=== PATIENT | male | born 1970 | race Caucasian/White ===

== ENCOUNTER 2017-05-08 16:14 | Emergency (ER) | payer SELFPAY ==
[~2017-05-08] VITALS: Ht 170.2 cm; Wt 54.4 kg
[~2017-05-08 16:14] MED LIST: LORA-258 PO
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
[2017-05-08] MEDS ORDERED: HYDROCODONE/APAP 5/325MG 1 EACH TABLET ONE (16:30)
[2017-05-08] MEDS ORDERED: ONDANSETRON 4 MG TAB.RAPDIS SL ONE (16:30)
[2017-05-08] MEDS ORDERED: HYDROCODONE/APAP 5/325MG 1 EACH TABLET PO ONE (16:30)
[2017-05-08] MEDS ORDERED: ONDANSETRON 4 MG TAB.RAPDIS ONE (16:31)
--- NOTE | 2017-05-08 17:15 | NUR ---
CALLED [phone] F/U WITH US
[2017-05-08 17:53] VITALS: BP 136/75
--- NOTE | 2017-05-08 17:55 | NUR ---
Patient discharged to home in stable condition. Written and verbal after care instructions given. Patient verbalizes understanding of instruction.
== END 2017-05-08 17:55 | disposition home or self-care (01) ==
LOC: ER 16:16
DX: N50.811 Right testicular pain (principal); J45.909 Unspecified asthma, uncomplicated; F20.9 Schizophrenia, unspecified; F10.10 Alcohol abuse, uncomplicated; F17.200 Nicotine dependence, unspecified, uncomplicated
CPT/HCPCS: 99283; A4606; Q0162; Z7610

== ENCOUNTER 2017-07-25 01:26 | Emergency (ER) | payer OTHER ==
[~2017-07-25] VITALS: Ht 170.2 cm; Wt 77.1 kg
--- NOTE | 2017-07-25 01:30 | NUR ---
bib paramedics from [facility] c/o low blood pressure. received pt aaox4 but slow to respond but able to follw simple commands, no acute distress noted, resp even and unlabored. place pt on cardiac monitoring, continuous pox, o2@2l/nc. 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 pupils perrla, pt able to move all extremities well with bilateral equal operator weapon locating radar. er md at beside to eval pt with orders received. [employer] officers at bedside.
--- NOTE | 2017-07-25 01:30 | NUR ---
Note frankie in EDM - 07/25/17 at 0138 by MARQUES bib paramedics from [facility] c/o low blood pressure. received pt somnolent, no acute distress noted, resp even and unlabored. place pt on cardiac monitoring, continuous pox, o2@2l/nc. 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 pupils perrla, pt able to move all extremities well with bilateral equal accounting analyst. er md at beside to eval pt with orders received.
[2017-07-25 01:59] LABS: BASOPHILS % (AUTO) 0.1 % (0.0-2.0); EOSINOPHILS % (AUTO) 1.6 % (0.0-6.0); HEMATOCRIT 43 % (39-51); HEMOGLOBIN 14.4 g/dL (13.5-17.5); LYMPHOCYTES # (AUTO) 0.6 /CMM (0.8-4.8); LYMPHOCYTES % (AUTO) 6.1 % (20.0-44.0); MEAN CORPUSCULAR HGB CONC 34 g/dl (31.0-36.0); MEAN CORPUSCULAR VOLUME 96 fL (80-96); MONOCYTES # (AUTO) 0.1 /CMM (0.1-1.30); MONOCYTES % (AUTO) 0.8 % (2.0-12.0); NEUTROPHILS # (AUTO) 9.6 /CMM (1.8-8.9); NEUTROPHILS % (AUTO) 91.4 % (43.0-81.0); PLATELET COUNT (AUTO) 176 /CMM (150-450); RDW COEFFICIENT OF VARIATION 14.1 (11.5-15.0); RED BLOOD CELL COUNT(AUTO) 4.42 MIL/uL (4.5-6.0); WHITE BLOOD COUNT (AUTO) 10.5 K/uL (4.3-11.0)
[2017-07-25] MEDS ORDERED: IV NS 0.9% 1,000 ML BAG IV ONE ×2 (02:00→03:30)
[2017-07-25 02:15] LABS: ACETAMINOPHEN 2 ug/ml (10-30); ALANINE AMINOTRANSFERASE 85 U/L (12-78); ALBUMIN 2.8 g/dL (3.4-5.0); ALCOHOL, BLOOD < 3 mg/dL (0-0); ALKALINE PHOSPHATASE 65 U/L (46-116); ASPARTATE AMINOTRANSFERASE 51 U/L (15-37); BILIRUBIN,DIRECT 0.2 mg/dL (0.0-0.2); BILIRUBIN,TOTAL 0.5 mg/dL (0.2-1.0); CALCIUM, SERUM 8.8 mg/dL (8.5-10.1); CARBON DIOXIDE 26 mmol/L (21-32); CHLORIDE 105 mmol/L (98-107); CREATININE 1.1 mg/dL (0.6-1.3); GLUCOSE 137 mg/dL (74-106); POTASSIUM 3.5 mmol/L (3.5-5.1); SODIUM SERUM 139 mmol/L (136-145); TOTAL PROTEIN, SERUM 5.8 g/dL (6.4-8.2); UREA NITROGEN, BLOOD 17 mg/dL (7-18)
[2017-07-25 02:29] LABS: SALICYLATE 1.8 mg/dL (2.8-20.0)
[2017-07-25] MEDS ORDERED: LIDOCAINE 2% JEL UROJET 10 ML MM ONE (02:50)
--- NOTE | 2017-07-25 02:58 | NUR ---
urine sample collected apporximately 200ml's of clear yellow urine noted.
--- NOTE | 2017-07-25 03:32 | NUR ---
pt asleep, no acute distress noted, resp even and unlabored. call light wihtin reach. [employer] officers remains at bedside.
[2017-07-25 04:10] LABS: APPEARANCE,URINE CLEAR (CLEAR); BILIRUBIN,URINE NEGATIVE (NEGATIVE); BLOOD, URINE NEGATIVE Ery/uL (NEGATIVE); COLOR,URINE YELLOW (YELLOW); KETONES,URINE TRACE (NEGATIVE); LEUKOCYTE ESTERASE ,URINE NEGATIVE (NEGATIVE); NITRITE, URINE NEGATIVE (NEGATIVE); PH,URINE 5.5 (5.0-8.0); PROTEIN,URINE TRACE mg/dl (NEGATIVE); UGLUCOSE NEGATIVE (NEGATIVE); UROBILINOGEN,URINE 0.2 EU/dL (0.2)
[2017-07-25 04:20] LABS: BACTERIA,URINE None seen /HPF (None Seen); MUCUS,URINE Few /LPF (None Seen); RBC,URINE NONE SEEN /HPF (0-2); SQUAMOUS EPITHELIAL CELL,UR Few /HPF (None Seen); WBC,URINE 0-2 /HPF (0-3)
--- NOTE | 2017-07-25 04:38 | NUR ---
pt medically cleared for discharge.
[2017-07-25 04:39] VITALS: BP 110/73
--- NOTE | 2017-07-25 04:46 | NUR ---
IV removed. Catheter intact and site benign. Pressure and 4x4 applied to site. No bleeding noted. Patient discharged to [employer] custody in stable condition. Written and verbal after care instructions given. Patient verbalizes understanding of instruction. pt aaox4 no acute distress noted, resp even and unlabored.
== END 2017-07-25 04:47 ==
LOC: ER 01:27
DX: F19.10 Other psychoactive substance abuse, uncomplicated (principal); Z86.19 Personal history of other infectious and parasitic diseases
CPT/HCPCS: 36415; 70450-TC; 71045-TC; 80048-TC; 80076-TC; 80305; 81000-TC; 82962-TC; 85025-TC; A4606; G0480; J3490; J7030; Z7610

== ENCOUNTER 2017-08-01 14:02 | Emergency (ER) | payer OTHER ==
[~2017-08-01] VITALS: Ht 167.6 cm; Wt 61.2 kg
--- NOTE | 2017-08-01 14:46 | NUR ---
PT REFUSED EKG AND ALL OTHER MEDICAL SERVICES. MADE AWARE. PT BEING DISCHARGED TO [employer] UNDER CUSTODY. DISCHARGE PAPERWORK PROVIDED TO PT AND [employer] OFFICERS.
== END 2017-08-01 14:49 | disposition home or self-care (01) ==
LOC: ER 14:03
DX: Z02.89 Encounter for other administrative examinations (principal); Z76.5 Malingerer [conscious simulation]; F20.9 Schizophrenia, unspecified; F41.9 Anxiety disorder, unspecified; Z86.19 Personal history of other infectious and parasitic diseases
CPT/HCPCS: A4606; Z7610